=== PATIENT | male | born 1965 | race African-American/Black ===

== ENCOUNTER 2020-11-17 20:07 | Inpatient (IN) | payer BC ==
[~2020-11-17 20:07] MED LIST: Iopamidol-370 76% 500 ML 1 ML ONE
[2020-11-17 21:20] LABS: ALT (SGPT) 79 U/L (8-55); AST (SGOT) 47 U/L (5-34); Albumin 3.2 g/dL (3.5-5.0); Alkaline Phosphatase 69 U/L (40-110); Anion Gap 20 mmol/L (10-20); BUN (Urea Nitrogen) 20 mg/dL (8.4-25.7); Bilirubin, Total 0.2 mg/dL (0.2-1.2); Calc. Creatinine Clearance 0 mL/min (70-130); Calcium 8.6 mg/dL (7.8-10.44); Carbon Dioxide 22 mmol/L (22-29); Chloride 103 mmol/L (98-107); Globulin 2.9 g/dL (2.4-3.5); Glucose 94 mg/dL (70-105); Potassium 5.5 mmol/L (3.5-5.1); Protein, Total 6.1 g/dL (6.0-8.3); Sodium 139 mmol/L (136-145)
[2020-11-17 22:30] LABS: Hemoglobin 14.2 g/dL (14.0-18.0); Mean Corpuscular HGB CONC 33.7 g/dL (32.0-36.0); Mean Corpuscular Hemoglobin 31.8 pg (27.0-31.0); Mean Corpuscular Volume 94.4 fL (78.0-98.0); Mean Platelet Volume 7.8 fL (7.4-10.4); Platelet Count 205 thou/uL (130-400); Red Blood Cell (RBC) Count 4.47 mill/uL (4.70-6.10); White Blood Cell (WBC) Count 6.1 thou/uL (4.8-10.8)
[2020-11-17 22:51] LABS: Eosinophils 2 % (0-10); Lymphocytes 29 % (21-51); MDiff Complete? YES; Monocytes 10 % (0-10); Neutrophil 59 % (42-75); Platelet Morphology Comment Appears Adequate
[2020-11-18 02:16] VITALS: BMI 26.0
[2020-11-18] MEDS ORDERED: hydrALAZINE 20 MG/ML VIAL SLOW IVP PRN (09:14)
[2020-11-18] MEDS ORDERED: Morphine 2 MG/ML VIAL SLOW IVP SCH (09:15)
[2020-11-18] MEDS ORDERED: cefTRIAXone\\ROCEPHIN 1 GM VIAL ONE (10:00)
[2020-11-18 10:02] LABS: Lactic Acid 1.8 mmol/L (0.5-2.2)
[2020-11-18 10:04] LABS: Anion Gap 11 mmol/L (10-20); BUN (Urea Nitrogen) 20 mg/dL (8.4-25.7); Calc. Creatinine Clearance 133 mL/min (70-130); Calcium 8.7 mg/dL (7.8-10.44); Carbon Dioxide 24 mmol/L (22-29); Chloride 104 mmol/L (98-107); Glucose 98 mg/dL (70-105); Potassium 4.4 mmol/L (3.5-5.1); Sodium 135 mmol/L (136-145)
[2020-11-18 10:24] LABS: Syphilis Antibody Nonreactive (Nonreactive); Syphilis Antibody Index 0.04 S/CO (<1.00 Non-Reactive)
[2020-11-18] MEDS ORDERED: Aspirin Chewable 81 MG TAB ONE (10:25)
[2020-11-18] MEDS ORDERED: Morphine 4 MG/ML VIAL ONE (10:25)
[2020-11-18] MEDS: Aspirin 81 mg Enteric Coated Tablet PO SCH (10:28)
[2020-11-18 14:25] LABS: CCP IgG Antibody Less than 0.4 EliAU/mL (<7 Negative); EliA RAS New Method **** NEW METHOD ****; Rheumatoid Factor IgA Antibody 2.4 IU/mL (<14 Negative); Rheumatoid Factor IgM Antibody 0.7 IU/mL (<3.5 Negative)
[2020-11-18 15:49] LABS: SARS-CoV-2 PCR by NAA DETECTED (NotDetected)
[2020-11-18] MEDS ORDERED: Acetaminophen 325 MG TAB PO PRN (17:06)
[2020-11-18] MEDS: Ketorolac Tromethamine 10 MG TAB PO SCH (18:35)
[2020-11-18] MEDS: Heparin 5,000 UNITS/ML VIAL SC SCH (20:25)
[2020-11-18] MEDS: Atorvastatin Calcium 40 MG TAB PO SCH (20:31)
[2020-11-19] MEDS: Ketorolac Tromethamine 10 MG TAB PO SCH ×3 (00:55→12:11)
[2020-11-19 02:08] LABS: Bacteria/HPF None Seen HPF (None Seen); Bilirubin Negative (Negative); Blood, Urine Negative (Negative); Clarity Clear (Clear); Glucose, Urine (Dipstick) Normal (Negative); Ketone, Urine Negative (Negative); Leukocyte 75 Leu/uL (Negative); Nitrite Negative (Negative); Protein, Urine (Dipstick) 10 mg/dL (Neg-Trace); Specific Gravity, Urine 1.058 (1.002-1.036); Squamous Epithelial 0-3 HPF (0-3); Urobilinogen Normal mg/dL (Less than 2); pH, Urine 6.5 (5.0-9.0)
[2020-11-19 02:11] LABS: Urine Culture Reflex Yes Yes
[2020-11-19 07:00] LABS: Cardiac Risk 5.5 (Less than 4.5)
[2020-11-19] MEDS: Heparin 5,000 UNITS/ML VIAL SC SCH ×2 (08:26→21:40)
[2020-11-19] MEDS: Aspirin 81 mg Enteric Coated Tablet PO SCH (08:29)
[2020-11-19] MEDS: cefTRIAXone\\ROCEPHIN 1 GM in Sodium Chloride 0.9% 100 ML IVPB SCH (08:30)
[2020-11-19] MEDS ORDERED: Dextrose 5% in Water 1,000 ML IV PRN (13:15)
[2020-11-19] MEDS ORDERED: Dextrose 50% Abboject 50 ML SYRINGE IVP PRN (13:15)
[2020-11-19] MEDS ORDERED: HumaLOG 300 UNITS/3 ML VIAL SC PRN (13:15)
[2020-11-19] MEDS ORDERED: Ketorolac Tromethamine 10 MG TAB PO PRN (16:54)
[2020-11-19] MEDS ORDERED: Tamsulosin HCl 0.4 MG CAP PO SCH (21:00)
[2020-11-19] MEDS: Atorvastatin Calcium 40 MG TAB PO SCH (21:39)
[2020-11-19] MEDS: busPIRone HCl 10 MG TAB PO SCH (21:39)
[2020-11-20 05:17] LABS: Hemoglobin 11.6 g/dL (14.0-18.0); Mean Corpuscular Volume 93.9 fL (78.0-98.0); Mean Platelet Volume 7.7 fL (7.4-10.4); Platelet Count 142 thou/uL (130-400); RBC Distribution Width 12.1 % (11.5-14.5); Red Blood Cell (RBC) Count 3.76 mill/uL (4.70-6.10); White Blood Cell (WBC) Count 3.6 thou/uL (4.8-10.8)
[2020-11-20 05:45] LABS: ALT (SGPT) 64 U/L (8-55); AST (SGOT) 31 U/L (5-34); Albumin 2.8 g/dL (3.5-5.0); Alkaline Phosphatase 54 U/L (40-110); Anion Gap 9 mmol/L (10-20); BUN (Urea Nitrogen) 21 mg/dL (8.4-25.7); Bilirubin, Total 0.3 mg/dL (0.2-1.2); Calc. Creatinine Clearance 129 mL/min (70-130); Carbon Dioxide 26 mmol/L (22-29); Chloride 107 mmol/L (98-107); Glucose 100 mg/dL (70-105); Potassium 4.3 mmol/L (3.5-5.1); Protein, Total 4.8 g/dL (6.0-8.3); Sodium 138 mmol/L (136-145)
[2020-11-20 06:01] LABS: Band 3 % (5-11); Eosinophils 9 % (0-10); Lymphocytes 27 % (21-51); MDiff Complete? YES; Monocytes 17 % (0-10); Neutrophil 42 % (42-75); Reactive Lymphocytes 2 % (0-10)
[2020-11-20] MEDS ORDERED: Losartan 25 MG TAB PO SCH (09:00)
[2020-11-20] MEDS: busPIRone HCl 10 MG TAB PO SCH (09:57)
[2020-11-20] MEDS: Aspirin 81 mg Enteric Coated Tablet PO SCH (09:57)
[2020-11-20] MEDS: cefTRIAXone\\ROCEPHIN 1 GM in Sodium Chloride 0.9% 100 ML IVPB SCH (09:57)
[2020-11-20] MEDS: Heparin 5,000 UNITS/ML VIAL SC SCH (09:57)
[2020-11-20 15:59] VITALS: TEMP 97.7
[2020-11-20 16:15] VITALS: BP 144/98
[2020-11-22 15:23] LABS: ANA Symphony (Qualitative) Negative (Negative); ANA Symphony (Quantitative) 0.2 Ratio (< 0.7 Negative); dsDNA IgG Antibody 0.6 IU/mL (<10 Negative)
== END 2020-11-20 19:38 | DRG 65 ==
LOC: ERS 20:07 → ERHOLD 11-18 00:56 → 2SE 11-18 16:43 → OBSVTOIN 11-19 10:32
PROVIDERS: ADMIT Internal Medicine; ATTEND Family Medicine
PROC: 06HY33Z Insertion of Infusion Device into Lower Vein, Percutaneous Approach (ICD-10-PCS; principal; 2020-11-19)
DX: I63.9 Cerebral infarction, unspecified (principal); G81.91 Hemiplegia, unspecified affecting right dominant side; N30.00 Acute cystitis without hematuria; I10 Essential (primary) hypertension; R29.810 Facial weakness; R29.706 NIHSS score 6; B96.4 Proteus (mirabilis) (morganii) as the cause of diseases classified elsewhere; J38.00 Paralysis of vocal cords and larynx, unspecified; R74.01 Elevation of levels of liver transaminase levels; E87.5 Hyperkalemia; R41.0 Disorientation, unspecified; Z88.8 Allergy status to other drugs, medicaments and biological substances; Z91.013 Allergy to seafood; Z86.16 Personal history of COVID-19
CPT/HCPCS: 36415; 36416; 36556; 70496; 70498; 70551; 71045; 80048; 80053; 80061; 81001; 83520; 83605; 85025; 86038; 86200; 86225; 86780; 87086; 93005; 93306; 95712; 95819; 95957; 96375; G0378; J0696; J1642; J1644; J2270; J3490; Q9967; U0003; U0005